=== PATIENT | male | born 1990 | race Caucasian/White ===

== ENCOUNTER 2017-12-27 08:33 | Emergency (ER) | payer OTHER ==
[~2017-12-27] VITALS: Ht 172.7 cm; Wt 72.6 kg
[2017-12-27] MEDS ORDERED: HUMALOG100 UNIT/4 SUBQ (08:42)
[2017-12-27 09:09] VITALS: BP 116/67
--- NOTE | 2017-12-27 09:09 | Emergency Room Report ---
History of Present Illness General Chief Complaint: General Complaint Source: Patient Present Illness HPI Patient is a 27-year-old male who presented after increased nausea and emesis. Patient had prior history of diabetes type 1 and uses an insulin pump. He reports having normal blood sugars. He reported having intermittent episodes morning vomiting. The patient said this morning he had vomited several times and noticed some undigested food and questionable blood. 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 He states he's been clean for several months. Allergies: Coded Allergies: No Known Allergies (Unverified , 12/27/17) Patient History Past Medical History: see triage record Reviewed Nursing Documentation: PMH: Agreed, PSxH: Agreed Nursing Documentation-PMH Past Medical History: No History, Except For Hx Diabetes: Yes - type I Review of Systems All Other Systems: negative except mentioned in HPI Physical Exam Vital Signs Date Time Temp Pulse Resp B/P (MAP) Pulse Ox O2 Delivery O2 Flow Rate FiO2 12/27/17 08:36 98.2 92 18 115/74 95 Room Air 98.2 Sp02 EP Interpretation: reviewed, normal General Appearance: normal inspection, well appearing, no apparent distress, alert, GCS 15 Head: atraumatic ENT: normal ENT inspection, hearing grossly normal, normal voice Neck: normal inspection, full range of motion, supple, no bony tend Respiratory: normal inspection, lungs clear, normal breath sounds, no respiratory distress, no retraction, no wheezing Cardiovascular #1: regular rate, rhythm, no edema Gastrointestinal: normal inspection, normal bowel sounds, non tender, soft, no guarding, no hernia Genitourinary: no CVA tenderness Musculoskeletal: normal inspection, back normal, normal range of motion Neurologic: normal inspection, alert, oriented x3, responsive, computer hardware designer III-XII nml as tested, speech normal Psychiatric: normal inspection, judgement/insight normal, mood/affect normal Skin: normal inspection, normal color, no rash Medical Decision Making Diagnostic Impression: Primary Impression: Nausea, vomiting, and diarrhea Additional Impression: UTI (urinary tract infection) ER Course Patient presented for abdominal pain. Differential diagnoses included ischemic bowel, appendicitis, perforated viscus, abdominal aortic aneurysm, inferior myocardial infarction, viral gastroenteritis. Because of complexity of patient' s case laboratory testing and imaging studies were ordered. Patient was given IV fluids and antiemetics. Patient continued to have a benign exam. Laboratory studies were unremarkable and the patient does not have evident ketoacidosis. He was given prescriptions for antibiotics and medications for nausea and diarrhea. He was advised to return if worsening. Labs Test 12/27/17 09:05 White Blood Count 3.9 K/UL (4.8-10.8) Red Blood Count 5.08 M/UL (4.70-6.10) Hemoglobin 15.6 G/DL (14.2-18.0) Hematocrit 45.3 % (42.0-52.0) Mean Corpuscular Volume 89 FL (80-99) Mean Corpuscular Hemoglobin 30.8 PG (27.0-31.0) Mean Corpuscular Hemoglobin Concent 34.5 G/DL (32.0-36.0) Red Cell Distribution Width 11.2 % (11.6-14.8) Platelet Count 234 K/UL (150-450) Mean Platelet Volume 6.6 FL (6.5-10.1) Neutrophils (%) (Auto) 57.0 % (45.0-75.0) Lymphocytes (%) (Auto) 32.4 % (20.0-45.0) Monocytes (%) (Auto) 8.7 % (1.0-10.0) Eosinophils (%) (Auto) 1.0 % (0.0-3.0) Basophils (%) (Auto) 1.0 % (0.0-2.0) Prothrombin Time 10.7 SEC (9.30-11.50) Prothromb Time International Ratio 1.0 (0.9-1.1) Activated Partial Thromboplast Time 25 SEC (23-33) Urine Color Yellow Urine Appearance Clear Urine pH 6 (4.5-8.0) Urine Specific Echo 1.020 (1.005-1.035) Urine Protein 1+ (NEGATIVE) Urine Glucose (UA) 2+ (NEGATIVE) Urine Ketones Negative (NEGATIVE) Urine Occult Blood Negative (NEGATIVE) Urine Nitrite Negative (NEGATIVE) Urine Bilirubin Negative (NEGATIVE) Urine Urobilinogen Normal MG/DL (0.0-1.0) Urine Leukocyte Esterase 1+ (NEGATIVE) Urine RBC 0-2 /HPF (0 - 0) Urine WBC 2-4 /HPF (0 - 0) Urine Squamous Epithelial Cells Occasional /LPF Urine Bacteria Occasional /HPF (NONE) Urine Mucus Few /LPF (NONE/OCC) Sodium Level 142 MMOL/L (136-145) Potassium Level 4.1 MMOL/L (3.5-5.1) Chloride Level 107 MMOL/L (98-107) Carbon Dioxide Level 33 MMOL/L (21-32) Anion Gap 2 mmol/L (5-15) Blood Urea Nitrogen 11 mg/dL (7-18) Creatinine 1.2 MG/DL (0.55-1.30) Estimat Glomerular Filtration Rate > 60 mL/min (>60) Glucose Level 191 MG/DL (74-106) Calcium Level 9.4 MG/DL (8.5-10.1) Total Bilirubin 0.4 MG/DL (0.2-1.0) Aspartate Amino Transf (AST/SGOT) 18 U/L (15-37) Alanine Aminotransferase (ALT/SGPT) 20 U/L (12-78) Alkaline Phosphatase 68 U/L (46-116) Total Protein 7.8 G/DL (6.4-8.2) Albumin 4.2 G/DL (3.4-5.0) Globulin 3.6 g/dL Albumin/Globulin Ratio 1.2 (1.0-2.7) Lipase 83 U/L (73-393) Last Vital Signs Date Time Temp Pulse Resp B/P (MAP) Pulse Ox O2 Delivery O2 Flow Rate FiO2 12/27/17 08:36 98.2 92 18 115/74 95 Room Air 98.2 Status: improved Disposition: HOME, SELF-CARE Condition: Stable Scripts Cephalexin* (KEFLEX*) 500 Mg Capsule 500 MG ORAL Q6H, #28 CAP 0 Refills Prov: Tacho Pretty 12/27/17 Referrals: NOT CHOSEN IPA/,REFERRING (PCP) Tacho Pretty Dec 27, 2017 09:09
[2017-12-27 09:15] LABS: HEMATOCRIT 45.3 % (42.0-52.0); HEMOGLOBIN 15.6 G/DL (14.2-18.0); LYMPHOCYTES % (AUTO) 32.4 % (20.0-45.0); MEAN CORPUSCULAR VOLUME 89 FL (80-99); MONOCYTES % (AUTO) 8.7 % (1.0-10.0); PLATELET COUNT 234 K/UL (150-450); RED BLOOD COUNT 5.08 M/UL (4.70-6.10); RED CELL DISTRIBUTION WIDTH 11.2 % (11.6-14.8); WHITE BLOOD COUNT 3.9 K/UL (4.8-10.8)
[2017-12-27 09:21] LABS: APPEARANCE,URINE CLEAR; BILIRUBIN, URINE NEGATIVE (NEGATIVE); COLOR,URINE YELLOW; GLUCOSE, URINE (UA) 2+ (NEGATIVE); KETONES,URINE NEGATIVE (NEGATIVE); LEUKOCYTE ESTERASE ,URINE 1+ (NEGATIVE); NITRITE,URINE NEGATIVE (NEGATIVE); PH,URINE 6 (4.5-8.0); PROTEIN,URINE 1+ (NEGATIVE); UROBILINOGEN,URINE NORMAL MG/DL (0.0-1.0)
[2017-12-27 09:22] LABS: ANION GAP 2 mmol/L (5-15); BLOOD UREA NITROGEN 11 mg/dL (7-18); CALCIUM 9.4 MG/DL (8.5-10.1); CARBON DIOXIDE 33 MMOL/L (21-32); CHLORIDE 107 MMOL/L (98-107); CREATININE 1.2 MG/DL (0.55-1.30); POTASSIUM 4.1 MMOL/L (3.5-5.1); SODIUM 142 MMOL/L (136-145)
[2017-12-27 09:26] LABS: ALANINE AMINOTRANSFERASE 20 U/L (12-78); ALBUMIN 4.2 G/DL (3.4-5.0); ALBUMIN/GLOBULIN RATIO 1.2 (1.0-2.7); ALKALINE PHOSPHATASE 68 U/L (46-116); ASPARTATE AMINO TRANSFERASE 18 U/L (15-37); BILIRUBIN,TOTAL 0.4 MG/DL (0.2-1.0)
--- NOTE | 2017-12-27 10:09 | Diagnostic Imaging Report ---
Indication: Chest pain Technique: One view of the chest Comparison: none Findings: Lungs and pleural spaces are clear. Heart size is normal Impression: No acute process
[2017-12-27] MEDS ORDERED: KEFLEX500 MG ORAL (10:41)
[2017-12-27] MEDS ORDERED: PEPCID20 MG ORAL (10:41)
[2017-12-27] MEDS ORDERED: cefTRIAXone 1 GM in NS 55 ML IVPB ONE (10:45)
[2017-12-27 10:58] VITALS: BP 120/65
[2017-12-27 11:08] VITALS: BP 120/65
[2017-12-27] MEDS ORDERED: KAOPECTATE240 M1 PO (11:16)
[2017-12-28] MEDS ORDERED: MIRTAZAPINE45 MG (18:53)
== END 2017-12-27 11:18 | disposition home or self-care (01) ==
LOC: EMR 08:55
DX: N39.0 Urinary tract infection, site not specified (principal); R11.2 Nausea with vomiting, unspecified; R19.7 Diarrhea, unspecified; E10.8 Type 1 diabetes mellitus with unspecified complications; Z79.4 Long term (current) use of insulin; R07.9 Chest pain, unspecified
CPT/HCPCS: 71045; 80053; 81003; 82962; 83690; 85025; 85610; 85730; 96374; 96375; 99284; J0696; J2405; S0028

== ENCOUNTER 2017-12-28 17:19 | Inpatient (IN) | payer OTHER ==
[~2017-12-28] VITALS: Ht 172.7 cm; Wt 72.6 kg
[~2017-12-28 17:19] MED LIST: HUMALOG100 UNIT/4 SUBQ; KAOPECTATE240 M1 PO; KEFLEX500 MG ORAL; PEPCID20 MG ORAL
[2017-12-28] MEDS ORDERED: Acetaminophen 500mg (ES) tab ORAL ONE (17:30)
[2017-12-28 17:31] VITALS: BP 106/65
--- NOTE | 2017-12-28 17:53 | Emergency Room Report ---
History of Present Illness General Chief Complaint: Nausea, Vomiting, and Diarrhea Source: Patient Present Illness HPI 27-year-old male, history of diabetes, p/w nausea vomiting diarrhea for 3 weeks Pt reports n/v, 5-6 episodes of nbnb vomiting, >5 episodes of watery non bloody diarrhea/day Denies fever, chills. was seen here 2 days ago, given keflex for UTI states he hasnt been able to keep anything down today no recent abx use aside from the keflex Allergies: Coded Allergies: No Known Allergies (Unverified , 12/27/17) Patient History Past Medical History: see triage record Past Surgical History: none Pertinent Family History: none Reviewed Nursing Documentation: PMH: Agreed, PSxH: Agreed Nursing Documentation-PMH Past Medical History: No History, Except For Hx Diabetes: Yes - type I Review of Systems All Other Systems: negative except mentioned in HPI Physical Exam Vital Signs Date Time Temp Pulse Resp B/P (MAP) Pulse Ox O2 Delivery O2 Flow Rate FiO2 12/28/17 17:23 99.7 101 16 106/65 98 Room Air 99.7 Sp02 EP Interpretation: reviewed, normal General Appearance: alert, GCS 15, non-toxic, mild distress Head: normocephalic, atraumatic Eyes: bilateral eye normal inspection, bilateral eye PERRL, bilateral eye EOMI ENT: normal ENT inspection, normal pharynx, normal voice, moist mucus membranes Neck: normal inspection, full range of motion, supple Respiratory: normal inspection, lungs clear, normal breath sounds, no respiratory distress, no retraction, no wheezing, speaking full sentences, chest symmetrical Cardiovascular #1: normal inspection, regular rate, rhythm, no edema, normal capillary refill Cardiovascular #2: 2+ radial (R), 2+ radial (L) Gastrointestinal: normal inspection, non tender, soft, non-distended, no guarding Genitourinary: no CVA tenderness Musculoskeletal: normal inspection, back normal, normal range of motion, non- tender Neurologic: normal inspection, alert, oriented x3, responsive, motor strength/ tone normal, sensory intact, normal gait, speech normal Psychiatric: normal inspection, judgement/insight normal, memory normal Skin: normal inspection, normal color, no rash, warm/dry, well hydrated, normal turgor Medical Decision Making Diagnostic Impression: Primary Impression: Nausea, vomiting, and diarrhea Additional Impression: Dehydration ER Course 27-year-old male with 3 weeks of nausea vomiting and diarrhea. Differential Diagnosis: Gastritis, gastroenteritis, DKA, appendicitis, diverticulitis, UTI/pyelo At this time abdomen is soft nontender, not likely to have acute intra- abdominal surgical pathology, will hold CT for now. Plan: Basic labs, ua, ekg IV fluids, Zofran ER course: Patient has remained HD stable during ED stay. Given IV fluids, Tylenol given flagyl empirically as states heh ad Cdiff last year will admit as patient with persistent sx Disposition: Patient will be admitted to med surg. Discussed with hospitalist Dr Jensen Please note that this Emergency Department Report was dictated using [employer] hospice technology software, occasionally this can lead to erroneous entry secondary to interpretation by the dictation equipment EKG Diagnostic Results EP Interpretation: Yes Rate: normal Rhythm: NSR ST Segments: No acute changes ASA given to patient: No Rhythm Strip EP Interpretation: Yes Rate: 90 Rhythm: NSR, no PVCs, no ectopy Laboratory Tests Test 12/28/17 17:45 White Blood Count 5.1 K/UL (4.8-10.8) Red Blood Count 5.03 M/UL (4.70-6.10) Hemoglobin 15.4 G/DL (14.2-18.0) Hematocrit 44.2 % (42.0-52.0) Mean Corpuscular Volume 88 FL (80-99) Mean Corpuscular Hemoglobin 30.7 PG (27.0-31.0) Mean Corpuscular Hemoglobin Concent 34.9 G/DL (32.0-36.0) Red Cell Distribution Width 10.8 % (11.6-14.8) L Platelet Count 272 K/UL (150-450) Mean Platelet Volume 7.1 FL (6.5-10.1) Neutrophils (%) (Auto) 63.4 % (45.0-75.0) Lymphocytes (%) (Auto) 27.7 % (20.0-45.0) Monocytes (%) (Auto) 7.8 % (1.0-10.0) Eosinophils (%) (Auto) 0.2 % (0.0-3.0) Basophils (%) (Auto) 0.9 % (0.0-2.0) Urine Color Pale yellow Urine Appearance Clear Urine pH 8 (4.5-8.0) Urine Specific [place] 1.015 (1.005-1.035) Urine Protein Negative (NEGATIVE) Urine Glucose (UA) Negative (NEGATIVE) Urine Ketones Negative (NEGATIVE) Urine Occult Blood Negative (NEGATIVE) Urine Nitrite Negative (NEGATIVE) Urine Bilirubin Negative (NEGATIVE) Urine Urobilinogen Normal MG/DL (0.0-1.0) Urine Leukocyte Esterase Negative (NEGATIVE) Sodium Level 143 MMOL/L (136-145) Potassium Level 4.1 MMOL/L (3.5-5.1) Chloride Level 106 MMOL/L (98-107) Carbon Dioxide Level 32 MMOL/L (21-32) Anion Gap 5 mmol/L (5-15) Blood Urea Nitrogen 8 mg/dL (7-18) Creatinine 1.2 MG/DL (0.55-1.30) Estimate Glomerular Filtration Rate > 60 mL/min (>60) Glucose Level 212 MG/DL (74-106) H Calcium Level 9.8 MG/DL (8.5-10.1) Magnesium Level 2.0 MG/DL (1.8-2.4) Total Bilirubin 0.6 MG/DL (0.2-1.0) Aspartate Amino Transferase (AST) 14 U/L (15-37) L Alanine Aminotransferase (ALT) 17 U/L (12-78) Alkaline Phosphatase 72 U/L (46-116) Total Protein 7.7 G/DL (6.4-8.2) Albumin 4.2 G/DL (3.4-5.0) Globulin 3.5 g/dL Albumin/Globulin Ratio 1.2 (1.0-2.7) Lipase 94 U/L (73-393) Acetone Level Negative (NEGATIVE) Last Vital Signs Date Time Temp Pulse Resp B/P (MAP) Pulse Ox O2 Delivery O2 Flow Rate FiO2 12/28/17 17:23 99.7 101 16 106/65 98 Room Air 99.7 Disposition: ADMITTED INPATIENT Condition: Prem Gonzalez M.D. Dec 28, 2017 17:53
[2017-12-28 18:09] LABS: BILIRUBIN, URINE NEGATIVE (NEGATIVE); COLOR,URINE PALE YELLOW; GLUCOSE, URINE (UA) NEGATIVE (NEGATIVE); KETONES,URINE NEGATIVE (NEGATIVE); LEUKOCYTE ESTERASE ,URINE NEGATIVE (NEGATIVE); NITRITE,URINE NEGATIVE (NEGATIVE); PH,URINE 8 (4.5-8.0); PROTEIN,URINE NEGATIVE (NEGATIVE); UROBILINOGEN,URINE NORMAL MG/DL (0.0-1.0)
[2017-12-28 18:10] LABS: APPEARANCE,URINE CLEAR; BASOPHILS % (AUTO) 0.9 % (0.0-2.0); EOSINOPHILS % (AUTO) 0.2 % (0.0-3.0); HEMATOCRIT 44.2 % (42.0-52.0); HEMOGLOBIN 15.4 G/DL (14.2-18.0); LYMPHOCYTES % (AUTO) 27.7 % (20.0-45.0); MEAN CORPUSCULAR VOLUME 88 FL (80-99); MONOCYTES % (AUTO) 7.8 % (1.0-10.0); NEUTROPHILS % (AUTO) 63.4 % (45.0-75.0); PLATELET COUNT 272 K/UL (150-450); RED BLOOD COUNT 5.03 M/UL (4.70-6.10); RED CELL DISTRIBUTION WIDTH 10.8 % (11.6-14.8); WHITE BLOOD COUNT 5.1 K/UL (4.8-10.8)
[2017-12-28 18:20] LABS: ANION GAP 5 mmol/L (5-15); BLOOD UREA NITROGEN 8 mg/dL (7-18); CALCIUM 9.8 MG/DL (8.5-10.1); CARBON DIOXIDE 32 MMOL/L (21-32); CHLORIDE 106 MMOL/L (98-107); CREATININE 1.2 MG/DL (0.55-1.30); POTASSIUM 4.1 MMOL/L (3.5-5.1); SODIUM 143 MMOL/L (136-145)
[2017-12-28 18:25] LABS: ALANINE AMINOTRANSFERASE 17 U/L (12-78); ALBUMIN 4.2 G/DL (3.4-5.0); ALBUMIN/GLOBULIN RATIO 1.2 (1.0-2.7); ALKALINE PHOSPHATASE 72 U/L (46-116); ASPARTATE AMINO TRANSFERASE 14 U/L (15-37); BILIRUBIN,TOTAL 0.6 MG/DL (0.2-1.0)
[2017-12-28] MEDS ORDERED: MIRTAZAPINE45 MG (18:53)
[2017-12-28 19:48] VITALS: BP 110/70
[2017-12-28] MEDS ORDERED: Zolpidem 5mg tab ORAL PRN (20:45)
[2017-12-28] MEDS: NovoLOG Insulin Flexpen SUBQ SCH (21:00)
[2017-12-28] MEDS: Ciprofloxacin 500mg tab ORAL SCH (22:23)
[2017-12-28] MEDS: metroNIDAZOLE 250mg tab ORAL SCH (22:23)
[2017-12-29 00:55] VITALS: BP 120/70
[2017-12-29 04:00] VITALS: BP 102/55
[2017-12-29] MEDS: metroNIDAZOLE 250mg tab ORAL SCH ×3 (05:26→21:28)
[2017-12-29 06:02] LABS: BASOPHILS % (AUTO) 1.3 % (0.0-2.0); EOSINOPHILS % (AUTO) 1.2 % (0.0-3.0); HEMATOCRIT 40.9 % (42.0-52.0); HEMOGLOBIN 14.8 G/DL (14.2-18.0); LYMPHOCYTES % (AUTO) 38.5 % (20.0-45.0); MEAN CORPUSCULAR VOLUME 89 FL (80-99); MONOCYTES % (AUTO) 8.8 % (1.0-10.0); NEUTROPHILS % (AUTO) 50.3 % (45.0-75.0); PLATELET COUNT 221 K/UL (150-450); RED BLOOD COUNT 4.61 M/UL (4.70-6.10); WHITE BLOOD COUNT 3.8 K/UL (4.8-10.8)
[2017-12-29 06:26] LABS: ALANINE AMINOTRANSFERASE 15 U/L (12-78); ALBUMIN 3.6 G/DL (3.4-5.0); ALBUMIN/GLOBULIN RATIO 1.1 (1.0-2.7); ALKALINE PHOSPHATASE 62 U/L (46-116); ANION GAP 4 mmol/L (5-15); ASPARTATE AMINO TRANSFERASE 14 U/L (15-37); BILIRUBIN,TOTAL 0.8 MG/DL (0.2-1.0); BLOOD UREA NITROGEN 8 mg/dL (7-18); CALCIUM 8.7 MG/DL (8.5-10.1); CARBON DIOXIDE 29 MMOL/L (21-32); CHLORIDE 107 MMOL/L (98-107); CHOLESTEROL 153 MG/DL (< 200); CREATININE 1.1 MG/DL (0.55-1.30); HDL CHOLESTEROL 40 MG/DL (40-60); SODIUM 140 MMOL/L (136-145); TRIGLYCERIDES 77 MG/DL (30-150)
[2017-12-29] MEDS: NovoLOG Insulin Flexpen SUBQ SCH ×4 (06:30→20:47)
[2017-12-29] MEDS: Ciprofloxacin 500mg tab ORAL SCH ×2 (08:20→20:10)
[2017-12-29 08:57] VITALS: BP 122/59
[2017-12-29] MEDS ORDERED: Tubing IV Secondary IV ONE (10:11)
--- NOTE | 2017-12-29 10:13 | History & Physical ---
History and Physical History & Physicial HP dictated # [id number] TORREY AWAD Dec 29, 2017 10:13
[2017-12-29 11:59] VITALS: BP 116/68
--- NOTE | 2017-12-29 15:46 | History and Physical Report ---
DATE OF ADMISSION: 12/28/2017 CHIEF COMPLAINT: Nausea, vomiting, and diarrhea. HISTORY OF PRESENT ILLNESS: This is a 27-year-old white male with history of type 1 diabetes mellitus. The patient has an insulin pump. He has had diarrhea for three weeks, sometimes watery, sometimes a little bit more solid. The patient apparently was seen in the emergency room two days prior to this admission and given Keflex for UTI, but he still continued to have diarrhea and finally came to the emergency room, and was admitted with diagnosis of acute gastroenteritis. PAST MEDICAL HISTORY: Besides history of diabetes, it is unremarkable. MEDICATIONS: Insulin pump, otherwise reconciled in the EMR. SOCIAL HISTORY: No history of smoking or alcohol abuse. ALLERGIES: No known drug allergies. REVIEW OF SYSTEMS: Noncontributory except above. The patient has not had significant abdominal pain. PHYSICAL EXAMINATION: GENERAL: The patient is a pleasant male, in no acute distress. VITAL SIGNS: Blood pressure 122/59, pulse 79, temperature 98, and respiratory rate 20. HEENT: [place] conjunctivae. Anicteric sclerae. NECK: Supple. LUNGS: Clear to auscultation. HEART: S1 and S2 without murmurs or rubs. ABDOMEN: Soft and nontender. EXTREMITIES: No cyanosis or edema. LABORATORY FINDINGS: The chemistry panel shows serum sodium 140, potassium 4, chloride 107, CO2 29, BUN 8, creatinine 1.1, and blood sugar 224. UA is negative. CBC shows WBC of 3.8, hematocrit 40.9, hemoglobin 14.8, and platelets 221,000. ASSESSMENT: This is a 27-year-old white male with history of type 1 diabetes mellitus admitted with three weeks of diarrhea, diagnosed of acute gastroenteritis and dehydration. His stool for Clostridium difficile was negative. PLAN: The patient will be hydrated with IV normal saline. He was started on empiric p.o. Cipro and Flagyl. We may have to get also GI consultation. Question is if this is just an infectious diarrhea or the patient has inflammatory bowel disease. Vern Jensen M.D. : FELIPA JOB#: [id number] CC:
[2017-12-29] MEDS ORDERED: Morphine Sulfate 2mg/ml Inj IVP PRN (16:15)
[2017-12-29 16:47] VITALS: BP 114/68
[2017-12-29 20:24] VITALS: BP 124/80
[2017-12-30] VITALS (7 sets, daily range): BP systolic 91–129; BP diastolic 60–89
[2017-12-30] MEDS: metroNIDAZOLE 250mg tab ORAL SCH ×3 (05:35→20:36)
[2017-12-30] MEDS: NovoLOG Insulin Flexpen SUBQ SCH ×4 (06:00→20:36)
[2017-12-30] MEDS: Ciprofloxacin 500mg tab ORAL SCH ×2 (08:42→20:36)
[2017-12-30] MEDS ORDERED: Morphine Sulfate 2mg/ml Inj IVP PRN (10:00)
--- NOTE | 2017-12-30 10:03 | General Progress Note ---
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 h/o C Diff in summer of 2016 - treated and now negative N/V Type I DM Recommendations - clears - Reglan - PPI - GI prep - EGD/Colon tomorrow afternoon Thank you Marlo Pittman MD Subjective Allergies: Coded Allergies: No Known Allergies (Unverified , 12/27/17) Objective Last 24 Hour Vital Signs Date Time Temp Pulse Resp B/P (MAP) Pulse Ox O2 Delivery O2 Flow Rate FiO2 12/30/17 09:42 97.8 12/30/17 08:00 97.8 80 19 124/80 97 12/30/17 04:16 98.8 69 20 100/60 100 12/30/17 00:30 98.8 82 18 121/77 98 12/29/17 20:24 99.1 88 20 124/80 98 12/29/17 20:10 98.3 12/29/17 16:47 98.3 77 19 114/68 97 Room Air 12/29/17 11:59 98.2 88 20 116/68 94 Room Air Intake and Output 12/29/17 12/30/17 19:00 07:00 Intake Total 300 ml 2280 ml Balance 300 ml 2280 ml Intake Oral 300 ml 680 ml IV Total 1600 ml # Voids 3 2 Height (Feet): 5 Height (Inches): 8.00 Weight (Pounds): 160 ALETHA PITTMAN Dec 30, 2017 10:03
[2017-12-30] MEDS: Pantoprazole Inj IVP SCH ×2 (10:51→20:36)
[2017-12-30] MEDS ORDERED: Nulytely 4L ORAL ONE (11:15)
[2017-12-30] MEDS: D5NS 1,000 ML IV SCH ×4 (12:20→19:38)
[2017-12-30] MEDS: Morphine Sulfate 4mg/ml Inj IVP PRN ×2 (13:46→18:54)
--- NOTE | 2017-12-30 14:07 | General Progress Note ---
Assessment/Plan Problem List: (1) Nausea, vomiting, and diarrhea ICD Codes: R11.2 - Nausea with vomiting, unspecified; R19.7 - Diarrhea, unspecified SNOMED: 3165411 (2) Acute gastroenteritis ICD Codes: K52.9 - Noninfective gastroenteritis and colitis, unspecified SNOMED: 03937464 Assessment/Plan IVF abxs follow labs await endoscopy Subjective Allergies: Coded Allergies: No Known Allergies (Unverified , 12/27/17) Subjective still with diarrhea Objective Last 24 Hour Vital Signs Date Time Temp Pulse Resp B/P (MAP) Pulse Ox O2 Delivery O2 Flow Rate FiO2 12/30/17 13:46 98.4 12/30/17 12:00 98.4 76 19 119/81 97 12/30/17 09:42 97.8 12/30/17 08:00 97.8 80 19 124/80 97 12/30/17 04:16 98.8 69 20 100/60 100 12/30/17 00:30 98.8 82 18 121/77 98 12/29/17 20:24 99.1 88 20 124/80 98 12/29/17 20:10 98.3 12/29/17 16:47 98.3 77 19 114/68 97 Room Air Intake and Output 12/29/17 12/30/17 19:00 07:00 Intake Total 300 ml 2280 ml Balance 300 ml 2280 ml Intake Oral 300 ml 680 ml IV Total 1600 ml # Voids 3 2 Height (Feet): 5 Height (Inches): 8.00 Weight (Pounds): 160 Cardiovascular: normal rate Respiratory/Chest: lungs clear Edema: no edema noted TORREY Downs Dec 30, 2017 14:07
[2017-12-30] MEDS ORDERED: Morphine Sulfate 4mg/ml Inj ONE (18:46)
--- NOTE | 2017-12-30 19:15 | Consultation ---
DATE OF CONSULTATION: 12/30/2017 GASTROENTEROLOGY CONSULTATION CHIEF COMPLAINT: I was asked to see this patient by Dr. Vern Jensen for evaluation of diarrhea. HISTORY OF PRESENT ILLNESS: The patient is a pleasant 27-year-old white man, who was admitted to the hospital due to persistent vomiting and diarrhea. The patient states that his diarrhea dates back to about a year and he is going to the bathroom four to five bowel movements a day, which are loose. In May last year he started having bouts of vomiting and was evaluated in [place]. He underwent an endoscopy, which was unrevealing, but his stools showed Clostridium difficile colitis for which he was treated. He stated his vomiting resolved, but his diarrhea has persisted at a level of four to five bowel movements a day with urgency. He has no nighttime diarrhea and no family history of inflammatory bowel disease. Over the last three weeks, however, his diarrhea has worsened and once again he is having nausea and vomiting. He came to the emergency room twice where he was eventually admitted. He is now being hydrated. What complicated matters is that he also has type 1 diabetes on insulin, but he keeps a very close control of his sugar levels. He has had no travels and he has no pets and no sick family or contacts. PAST MEDICAL HISTORY: History of type 1 diabetes mellitus, on insulin. FAMILY HISTORY: Negative for inflammatory bowel disease or diarrhea. SOCIAL HISTORY: The patient lives in [facility]; however, he is originally from [facility]. He does not smoke or drink alcohol. He is single. REVIEW OF SYSTEMS: Otherwise negative. PHYSICAL EXAMINATION: GENERAL: Pleasant white man, seen in his room. HEENT: Normocephalic and atraumatic. Sclerae anicteric. Oropharynx clear. NECK: Supple. CHEST: Clear to auscultation. CARDIOVASCULAR: Regular rate. ABDOMEN: Soft with good bowel sounds. There was no organomegaly or tenderness. EXTREMITIES: Revealed no edema. NEUROLOGIC: Nonfocal. LABORATORY DATA: Laboratory data were noted. ASSESSMENT: This patient presents with history of chronic diarrhea, dating back for about a year and now nausea and vomiting, which has resulted in dehydration on admission. He is being hydrated, but even as of this morning he vomited and therefore he will need an inpatient workup. Given the chronicity of the symptoms, an endoscopy and colonoscopy is warranted to rule out inflammatory bowel disease. Other pathogens can be checked for stool, but unlikely can be negative. His Clostridium difficile has already returned as negative. RECOMMENDATIONS: 1. Clear liquid diet. 2. Change IV fluids to continue some D5 to avoid unintentional hypoglycemia. 3. GI tract preparation. 4. Endoscopy and colonoscopy tomorrow with multiple biopsies. Thank you for asking me to participate in the care of this patient. Aman Pittman M.D. DR: DALIA JOB#: [id number] CC: MONSERRAT
[2017-12-31] VITALS (9 sets, daily range): BP systolic 96–122; BP diastolic 36–81
[2017-12-31] MEDS: D5NS 1,000 ML IV SCH ×2 (03:11→18:48)
[2017-12-31] MEDS: metroNIDAZOLE 250mg tab ORAL SCH (06:00)
[2017-12-31] MEDS: NovoLOG Insulin Flexpen SUBQ SCH ×4 (06:19→21:00)
[2017-12-31] MEDS: Ciprofloxacin 500mg tab ORAL SCH ×2 (08:40→21:30)
[2017-12-31] MEDS: Morphine Sulfate 4mg/ml Inj IVP PRN ×3 (08:40→21:31)
[2017-12-31] MEDS: Pantoprazole Inj IVP SCH ×2 (08:40→21:30)
[2017-12-31 09:01] LABS: HEMATOCRIT 41.1 % (42.0-52.0); MEAN CORPUSCULAR VOLUME 87 FL (80-99); PLATELET COUNT 227 K/UL (150-450); RED BLOOD COUNT 4.71 M/UL (4.70-6.10); WHITE BLOOD COUNT 3.2 K/UL (4.8-10.8)
[2017-12-31 09:33] LABS: ANION GAP 5 mmol/L (5-15); BLOOD UREA NITROGEN 4 mg/dL (7-18); CALCIUM 8.7 MG/DL (8.5-10.1); CARBON DIOXIDE 29 MMOL/L (21-32); CHLORIDE 109 MMOL/L (98-107); CREATININE 0.8 MG/DL (0.55-1.30); POTASSIUM 3.5 MMOL/L (3.5-5.1); SODIUM 143 MMOL/L (136-145)
[2017-12-31] MEDS ORDERED: Lidocaine 1% MPF 10mg/ml 5ml ONE (14:00)
[2017-12-31] MEDS ORDERED: Propofol 200mg/20ml IV ONE (14:00)
[2017-12-31] MEDS ORDERED: LR 1000ml 1,000 ML IVLG SCH (14:10)
--- NOTE | 2017-12-31 14:10 | Anethesia Preoperative Eval ---
Anesthesia Pre-op PMH/ROS General Date of Evaluation: Dec 31, 2017 Anesthesiologist: Henry ASA Score: ASA 2 Mallampati Score Class I : Soft palate, uvula, fauces, pillars visible Class II: Soft palate, uvula, fauces visible Class III: Soft palate, base of uvula visible Class IV: Only hard plate visible Mallampati Classification: Class II Surgeon: Zain Diagnosis: Diarrhea Surgical Procedure: EGD and colonoscopy Anesthesia History: none Family History: no anesthesia problems Allergies: Coded Allergies: No Known Allergies (Unverified , 12/27/17) Medications: see eMAR Past Medical History Cardiovascular: Denies: HTN, CAD, [place], valve dz, arrhythmia, other Pulmonary: Denies: asthma, COPD, [place], other Gastrointestinal/Genitourinary: Reports: other - diarrhea, Denies: GERD, CRI, ESRD Neurologic/Psychiatric: Denies: dementia, CVA, depression/anxiety, TIA, other Endocrine: Reports: DM, Denies: hypothyroidism, steroids, other HEENT: Denies: cataract (L), cataract (R), glaucoma, [place] (L), [place] (R), other Hematology/Immune: Denies: anemia, DVT, bleeding disorder, other Musculoskeletal/Integumentary: Denies: OA, RA, DJD, DDD, edema, other PSxH Narrative: Denies Anesthesia Pre-op Phys. Exam Physician Exam Last Vital Signs Date Time Temp Pulse Resp B/P (MAP) Pulse Ox O2 Delivery O2 Flow Rate FiO2 12/31/17 12:00 97.9 69 18 112/81 97 Room Air Constitutional: NAD Cardiovascular: RRR Respiratory: CTA Airway Exam Mallampati Score: Class II MO: full ROM: full Teeth: intact Anesthesia Pre-op A/P Labs Hematology Test 12/31/17 08:15 White Blood Count 3.2 K/UL (4.8-10.8) L Red Blood Count 4.71 M/UL (4.70-6.10) Hemoglobin 15.0 G/DL (14.2-18.0) Hematocrit 41.1 % (42.0-52.0) L Mean Corpuscular Volume 87 FL (80-99) Mean Corpuscular Hemoglobin 31.9 PG (27.0-31.0) H Mean Corpuscular Hemoglobin Concent 36.6 G/DL (32.0-36.0) H Red Cell Distribution Width 11.0 % (11.6-14.8) L Platelet Count 227 K/UL (150-450) Mean Platelet Volume 6.6 FL (6.5-10.1) Neutrophils (%) (Auto) % (45.0-75.0) Lymphocytes (%) (Auto) % (20.0-45.0) Monocytes (%) (Auto) % (1.0-10.0) Eosinophils (%) (Auto) % (0.0-3.0) Basophils (%) (Auto) % (0.0-2.0) Differential Total Cells Counted 100 Neutrophils % (Manual) 59 % (45-75) Lymphocytes % (Manual) 32 % (20-45) Monocytes % (Manual) 7 % (1-10) Eosinophils % (Manual) 0 % (0-3) Basophils % (Manual) 1 % (0-2) Metamyelocytes % 1 % (0-0) H Band Neutrophils 0 % (0-8) Platelet Estimate Adequate Platelet Morphology Normal Red Blood Cell Morphology Normal Erythrocyte Sedimentation Rate 6 MM/HR (0-15) Chemistry Test 12/31/17 08:15 Sodium Level 143 MMOL/L (136-145) Potassium Level 3.5 MMOL/L (3.5-5.1) Chloride Level 109 MMOL/L (98-107) H Carbon Dioxide Level 29 MMOL/L (21-32) Anion Gap 5 mmol/L (5-15) Blood Urea Nitrogen 4 mg/dL (7-18) L Creatinine 0.8 MG/DL (0.55-1.30) Estimat Glomerular Filtration Rate > 60 mL/min (>60) Glucose Level 74 MG/DL (74-106) Calcium Level 8.7 MG/DL (8.5-10.1) Magnesium Level 1.8 MG/DL (1.8-2.4) C-Reactive Protein, Quantitative < 0.4 mg/dL (0.00-0.90) Risk Assessment & Plan Assessment: see chart Plan: ASA II Status Change Before Surgery: No Pre-Antibiotics Drug: N/A KAIT RAY M.D. Dec 31, 2017 14:10
--- NOTE | 2017-12-31 14:11 | Immediate Post-Op Evaluation ---
Immediate Post-Op Evalulation Immediate Post-Op Evalulation Procedure: EGD and colonoscopy Date of Evaluation: Dec 31, 2017 Time of Evaluation: 15:35 IV Fluids: 500 Blood Products: 0 Estimated Blood Loss: 0 Urinary Output: 0 Blood Pressure Systolic: 94 Blood Pressure Diastolic: 53 Pulse Rate: 86 Respiratory Rate: 16 O2 Sat by Pulse Oximetry: 100 Temperature (Fahrenheit): 97 Pain Score (1-10): 0 Nausea: No Vomiting: No Complications 0 Patient Status: awake, reacts, patent, none Hydration Status: adequate Drug: N/A KAIT RAY M.D. Dec 31, 2017 14:11
--- NOTE | 2017-12-31 14:13 | 48 Hour Post Anesthesia Eval ---
Post Anesthesia Evaluation Procedure: EGD and colonoscopy Date of Evaluation: Dec 31, 2017 Airway: patent Nausea: No Vomiting: No Pain Intensity: 0 Hydration Status: adequate Cardiopulmonary Status: at baseline Mental Status/LOC: patient returned to baseline Post-Anesthesia Complications: 0 Follow-up care needed: N/A - further care as per primary team KAIT RAY M.D. Dec 31, 2017 14:13
[2017-12-31] MEDS ORDERED: DiphenhydrAMINE 50mg/ml Inj IVP PRN (14:15)
[2017-12-31] MEDS: metroNIDAZOLE 500mg tab ORAL SCH ×2 (14:18→21:30)
[2017-12-31] MEDS ORDERED: NS 500ML IV ONE (14:20)
--- NOTE | 2017-12-31 14:33 | General Progress Note ---
Assessment/Plan Problem List: (1) Nausea, vomiting, and diarrhea ICD Codes: R11.2 - Nausea with vomiting, unspecified; R19.7 - Diarrhea, unspecified SNOMED: 9173930 (2) Acute gastroenteritis ICD Codes: K52.9 - Noninfective gastroenteritis and colitis, unspecified SNOMED: 75762990 Assessment/Plan IVF abxs follow labs await endoscopy Subjective Allergies: Coded Allergies: No Known Allergies (Unverified , 12/27/17) Subjective still with diarrhea Objective Last 24 Hour Vital Signs Date Time Temp Pulse Resp B/P (MAP) Pulse Ox O2 Delivery O2 Flow Rate FiO2 12/31/17 12:00 97.9 69 18 112/81 97 Room Air 12/31/17 08:00 97.9 71 20 114/70 99 Room Air 12/31/17 04:06 98.1 65 20 96/46 97 Room Air 12/31/17 04:06 97 Room Air 12/30/17 23:49 97 Room Air 12/30/17 23:36 97.5 70 20 91/64 97 Room Air 12/30/17 19:28 97.2 82 20 111/80 98 Room Air 12/30/17 19:28 98 Room Air 12/30/17 19:24 98.2 12/30/17 18:54 98.2 12/30/17 16:00 98.2 69 16 129/89 97 Intake and Output 12/30/17 12/31/17 19:00 07:00 Intake Total 1740 ml 1440 ml Balance 1740 ml 1440 ml Intake Oral 990 ml IV Total 750 ml 1440 ml # Voids 5 2 # Bowel Movements 1 1 Laboratory Tests 12/31/17 08:15: White Blood Count 3.2L, Red Blood Count 4.71, Hemoglobin 15.0, Hematocrit 41.1L , Mean Corpuscular Volume 87, Mean Corpuscular Hemoglobin 31.9H, Mean Corpuscular Hemoglobin Concent 36.6H, Red Cell Distribution Width 11.0L, Platelet Count 227, Mean Platelet Volume 6.6, Neutrophils (%) (Auto) , Lymphocytes (%) (Auto) , Monocytes (%) (Auto) , Eosinophils (%) (Auto) , Basophils (%) (Auto) , Differential Total Cells Counted 100, Neutrophils % ( Manual) 59, Lymphocytes % (Manual) 32, Monocytes % (Manual) 7, Eosinophils % ( Manual) 0, Basophils % (Manual) 1, Metamyelocytes % 1H, Band Neutrophils 0, Platelet Estimate Adequate, Platelet Morphology Normal, Red Blood Cell Morphology Normal, Erythrocyte Sedimentation Rate 6, Sodium Level 143, Potassium Level 3.5, Chloride Level 109H, Carbon Dioxide Level 29, Anion Gap 5, Blood Urea Nitrogen 4L, Creatinine 0.8, Estimat Glomerular Filtration Rate > 60 , Glucose Level 74, Calcium Level 8.7, Magnesium Level 1.8, C-Reactive Protein, Quantitative < 0.4 Height (Feet): 5 Height (Inches): 8.00 Weight (Pounds): 160 Cardiovascular: normal rate Respiratory/Chest: lungs clear Abdomen: soft TORREY AWAD Dec 31, 2017 14:33
--- NOTE | 2017-12-31 14:40 | General Progress Note ---
Assessment/Plan Assessment/Plan Assessment [facility], going back 1 year h/o C Diff in summer of 2016 - treated and now negative N/V Type I DM mild anemia Recommendations - Reglan - PPI - EGD/Colon today POST PROCEDURE ADDENDUM EGD: - GERD with linear erosion - o/w normal EGD - multiple biopsies Colonoscopy - incidental transverse and descending polyps - o/w normal colon, including TI - multiple biopsies Rec - po diet - PPI - d/c planning - outpt f/u Subjective Allergies: Coded Allergies: No Known Allergies (Unverified , 12/27/17) Subjective NPO for EGD/Colon (+) BM with prep d/w patient re procedure Objective Last 24 Hour Vital Signs Date Time Temp Pulse Resp B/P (MAP) Pulse Ox O2 Delivery O2 Flow Rate FiO2 12/31/17 12:00 97.9 69 18 112/81 97 Room Air 12/31/17 08:00 97.9 71 20 114/70 99 Room Air 12/31/17 04:06 98.1 65 20 96/46 97 Room Air 12/31/17 04:06 97 Room Air 12/30/17 23:49 97 Room Air 12/30/17 23:36 97.5 70 20 91/64 97 Room Air 12/30/17 19:28 97.2 82 20 111/80 98 Room Air 12/30/17 19:28 98 Room Air 12/30/17 19:24 98.2 12/30/17 18:54 98.2 12/30/17 16:00 98.2 69 16 129/89 97 Intake and Output 12/30/17 12/31/17 19:00 07:00 Intake Total 1740 ml 1440 ml Balance 1740 ml 1440 ml Intake Oral 990 ml IV Total 750 ml 1440 ml # Voids 5 2 # Bowel Movements 1 1 Laboratory Tests 12/31/17 08:15: White Blood Count 3.2L, Red Blood Count 4.71, Hemoglobin 15.0, Hematocrit 41.1L , Mean Corpuscular Volume 87, Mean Corpuscular Hemoglobin 31.9H, Mean Corpuscular Hemoglobin Concent 36.6H, Red Cell Distribution Width 11.0L, Platelet Count 227, Mean Platelet Volume 6.6, Neutrophils (%) (Auto) , Lymphocytes (%) (Auto) , Monocytes (%) (Auto) , Eosinophils (%) (Auto) , Basophils (%) (Auto) , Differential Total Cells Counted 100, Neutrophils % ( Manual) 59, Lymphocytes % (Manual) 32, Monocytes % (Manual) 7, Eosinophils % ( Manual) 0, Basophils % (Manual) 1, Metamyelocytes % 1H, Band Neutrophils 0, Platelet Estimate Adequate, Platelet Morphology Normal, Red Blood Cell Morphology Normal, Erythrocyte Sedimentation Rate 6, Sodium Level 143, Potassium Level 3.5, Chloride Level 109H, Carbon Dioxide Level 29, Anion Gap 5, Blood Urea Nitrogen 4L, Creatinine 0.8, Estimat Glomerular Filtration Rate > 60 , Glucose Level 74, Calcium Level 8.7, Magnesium Level 1.8, C-Reactive Protein, Quantitative < 0.4 Height (Feet): 5 Height (Inches): 8.00 Weight (Pounds): 160 Objective WDWN NCAT supple CTA RRR soft ND NT no edema nonfocal ALETHA FERNÁNDEZ Dec 31, 2017 14:40
--- NOTE | 2017-12-31 14:40 | Pre-Procedure Note/Attestation ---
Pre-Procedure Note/Attestation Complete Prior to Procedure Planned Procedure: not applicable Procedure Narrative: EGD/Colon Indications for Procedure Pre-Operative Diagnosis: diarrhea Attestation I attest that I discussed the nature of the procedure; its benefits; risks and complications; and alternatives (and the risks and benefits of such alternatives ), prior to the procedure, with the patient (or the patient's legal community service representative). I attest that, if there was a reasonable possibility of needing a blood transfusion, the patient (or the patient's legal community service representative) was given the [facility] standardized written summary, pursuant to the Sharath [place] Blood Safety Act ([place] Health and Safety Code # 1645, as amended). I attest that I re-evaluated the patient just prior to the surgery and that there has been no change in the patient's H&P, except as documented below: ALETHA FERNÁNDEZ Dec 31, 2017 14:40
--- NOTE | 2017-12-31 15:26 | Cardiology Report ---
APPROVED REPORT EKG Measurement Heart [id number] Normal sinus rhythm Normal ECG
--- NOTE | 2017-12-31 15:27 | Endoscopy Procedure Note ---
Endoscopy Procedure Note General Indication for Procedure: diarhea, vomit Procedures Performed: EGD, colonoscopy Operative Findings/Diagnosis: polyps, GERD Specimen: yes Pt Tolerated Procedure Well: Yes Estimated Blood Loss: none Anesthesia Anesthesiologist: see notes Anesthesia: MAC, moderate sedation Medications Medication Given: see anesthesia record Inserted Devices Implant(s) used?: No GI Core Measures 50 yrs or older w/o bx or poly: Not Applicable 10yrs. F/U not recommended: Not Applicable If not recommended, why?: ALETHA FERNÁNDEZ Dec 31, 2017 15:27
--- NOTE | 2017-12-31 15:28 | Brief Operative Note ---
Immediate Post Operative Note Operative Note Chief Complaint: diarrhea Pre-op Diagnosis: diarrhea Procedure: esophagogastroduodenoscopycolon Post-op Diagnosis: EGD: - GERD with linear erosion - o/w normal EGD - multiple biopsies Colonoscopy - incidental transverse and descending polyps - o/w normal colon, including TI - multiple biopsies Rec - po diet - PPI - d/c planning - outpt f/u Surgeon: morteza Anesthesiologist: see report Anesthesia: MAC Specimen: yes Complications: none Condition: stable Fluids: recorded Estimated Blood Loss: none Drains: none Implant(s) used?: No ALETHA FERNÁNDEZ Dec 31, 2017 15:28
[2017-12-31] MEDS ORDERED: D5NS 1000ml IV ONE (16:02)
--- NOTE | 2018-01-01 00:30 | Procedure Note ---
DATE OF PROCEDURE: 12/31/2017 PROCEDURE: Upper gastrointestinal endoscopy with biopsy as well as colonoscopy with biopsy and polypectomy. SURGEON: Aman Pittman M.D. ANESTHESIA: Please see the separate anesthesiologist notes for details. PRE-ENDOSCOPIC DIAGNOSIS: Refractory diarrhea. POST-ENDOSCOPIC DIAGNOSES: 1. Normal upper endoscopy except for reflux related erosions in the lower esophagus. 2. Status post random biopsies of the duodenum, antrum, fundus, and mid esophagus. 3. Normal terminal ileum to 15 cm of examination. 4. No evidence of colitis based on mucosal visualization throughout the colon. 5. Diminutive polyp in the distal transverse colon, status post snare polypectomy. 6. A 3 millimeter polyp in the descending colon, status post biopsy removal. 7. Status post random biopsies of the terminal ileum, right colon, left colon, and rectum. PROCEDURE: The procedure, its risks, indications, alternatives, and possible complications were explained and an informed consent was obtained. The patient was then sedated. A diagnostic upper endoscope was introduced into the oropharynx and advanced to the duodenum. It was gradually withdrawn and then the colonoscope was introduced in the rectum and advanced to the terminal ileum. The colonoscope was then gradually withdrawn and the mucosa was examined carefully. Findings and procedures in the upper and the lower gastrointestinal examination were as listed above. The patient was sent to recovery in good condition. COMPLICATIONS: None. RECOMMENDATIONS: 1. Follow up biopsy results. 2. Resume oral diet. 3. Gentle antidiarrheal treatment as needed. Aman Pittman M.D. DR: DOTTIE JOB#: [id number] CC:
[2018-01-01] MEDS: D5NS 1,000 ML IV SCH ×2 (02:14→10:15)
[2018-01-01 04:00] VITALS: BP 100/64
[2018-01-01] MEDS: metroNIDAZOLE 500mg tab ORAL SCH (06:01)
[2018-01-01] MEDS: NovoLOG Insulin Flexpen SUBQ SCH (06:02)
[2018-01-01 08:00] VITALS: BP 97/56
[2018-01-01] MEDS: Pantoprazole Inj IVP SCH (08:36)
[2018-01-01] MEDS: Morphine Sulfate 4mg/ml Inj IVP PRN (08:36)
[2018-01-01] MEDS: Ciprofloxacin 500mg tab ORAL SCH (08:36)
[2018-01-01] MEDS ORDERED: IMODIUM A-D2 M2 PO (10:38)
--- NOTE | 2018-01-01 10:43 | Consultation ---
Consult Note Assessment/Plan [id number] TORREY AWAD Jan 01, 2018 10:43
[2018-01-01] MEDS ORDERED: Loperamide 2mg cap ORAL PRN (10:45)
[2018-01-01] MEDS ORDERED: D5NS 1000ml IV ONE (10:56)
--- NOTE | 2018-01-01 21:19 | General Progress Note ---
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 h/o C Diff in summer of 2016 - treated and now negative N/V Type I DM mild anemia GERD colon polyps Recommendations - Reglan - PPI - f/u pathology from EGD/Colon Subjective Allergies: Coded Allergies: No Known Allergies (Unverified , 12/27/17) Subjective better today tolerating po wants to go home path pending at time of visit Objective Last 24 Hour Vital Signs Date Time Temp Pulse Resp B/P (MAP) Pulse Ox O2 Delivery O2 Flow Rate FiO2 01/01/18 08:00 97.7 71 21 97/56 95 97.7 01/01/18 04:00 96.6 73 20 100/64 97 Room Air 96.6 12/31/17 22:24 99.5 12/31/17 21:31 99.5 Intake and Output 12/31/17 01/01/18 19:00 07:00 Intake Total 950 ml 125 ml Balance 950 ml 125 ml IV Total 950 ml 125 ml # Voids 1 Height (Feet): 5 Height (Inches): 8.00 Weight (Pounds): 160 Objective WDWN NCAT supple CTA RRR soft ND NT no edema nonfocal ALETHA FERNÁNDEZ Jan 01, 2018 21:19
--- NOTE | 2018-01-02 04:15 | Discharge Summary ---
DATE OF ADMISSION: 12/28/2017 DATE OF DISCHARGE: 01/01/2018 CHIEF COMPLAINT: Diarrhea, nausea, and vomiting. HISTORY OF PRESENT ILLNESS: This is a 27-year-old white male with history of type 1 diabetes mellitus, on insulin pump, who was admitted after three-week history of diarrhea and some watery and some solid stools. The patient had chronic diarrhea in the past, but recently was getting worse. HOSPITAL COURSE: The patient was hydrated with IV fluids. The patient was seen by Dr. Pittman in GI consultation. The patient underwent upper and lower endoscopy. I had a discussion with him. There were some polyps, which were removed in the colon, however, no definitive diagnosis was made. However, the patient had a biopsy done and the results were pending at the time of discharge. The patient continued to have a diarrhea, so we decided to put on Imodium. Initially, he was on Cipro and Flagyl for possibility of infectious diarrhea, however, these were discontinued as the patient was discharged. His hemoglobin A1c was 5.8 on 12/29/2017 and had lipid panel with LDL of 105. DISCHARGE DIAGNOSES: 1. Acute on chronic diarrhea of unknown etiology, possibility of inflammatory bowel disease. 2. Type 1 diabetes mellitus. Vern Jensen M.D. DR: JULIA JOB#: [id number] CC:
--- NOTE | 2018-01-03 18:19 | General Progress Note ---
Assessment/Plan Assessment/Plan Assessment [employer] diarrhea, going back 1 year h/o C Diff in summer of 2016 - treated and now negative N/V Type I DM mild anemia GERD colon polyps Recommendations - Reglan - PPI - can set up for outpatient capsule endoscopy Subjective Allergies: Coded Allergies: No Known Allergies (Unverified , 12/27/17) Subjective seen this am c/o still with abd pain also , still with diarrhea CT done - noted CT negative subsequently, patient left AMA Objective Height (Feet): 5 Height (Inches): 8.00 Weight (Pounds): 160 Objective WDWN NCAT supple CTA RRR soft ND, (+) lower abd TTP no edema nonfocal ALETHA FERNÁNDEZ Jan 03, 2018 18:19
== END 2018-01-01 10:57 | disposition home or self-care (01) | DRG 392 ==
LOC: EMR 17:30 → 3E 18:37 → EDBEDREQ 18:56 → 4W 12-29 18:42
PROC: 0DDF8ZX Extraction of Right Large Intestine, Via Natural or Artificial Opening Endoscopic, Diagnostic (ICD-10-PCS; principal; 2017-12-31 14:45)
PROC: 0DDP8ZX Extraction of Rectum, Via Natural or Artificial Opening Endoscopic, Diagnostic (ICD-10-PCS; principal; 2017-12-31 14:45)
PROC: 0DD68ZX Extraction of Stomach, Via Natural or Artificial Opening Endoscopic, Diagnostic (ICD-10-PCS; principal; 2017-12-31 14:45)
PROC: 0DDG8ZX Extraction of Left Large Intestine, Via Natural or Artificial Opening Endoscopic, Diagnostic (ICD-10-PCS; principal; 2017-12-31 14:45)
PROC: 0DD98ZX Extraction of Duodenum, Via Natural or Artificial Opening Endoscopic, Diagnostic (ICD-10-PCS; principal; 2017-12-31 14:45)
PROC: 0DBL8ZX Excision of Transverse Colon, Via Natural or Artificial Opening Endoscopic, Diagnostic (ICD-10-PCS; principal; 2017-12-31 14:45)
PROC: 0DDB8ZX Extraction of Ileum, Via Natural or Artificial Opening Endoscopic, Diagnostic (ICD-10-PCS; principal; 2017-12-31 14:45)
DX: K58.0 Irritable bowel syndrome with diarrhea (principal); K63.5 Polyp of colon; E10.9 Type 1 diabetes mellitus without complications; E86.0 Dehydration; D64.9 Anemia, unspecified; K21.9 Gastro-esophageal reflux disease without esophagitis; K52.9 Noninfective gastroenteritis and colitis, unspecified; Z79.4 Long term (current) use of insulin
CPT/HCPCS: 36415; 80048; 80053; 80061; 81003; 82009; 82270; 82962; 83036; 83690; 83735; 85007; 85025; 85651; 86140; 87045; 87324; 87427; 93005; 94003; 94150; 99285; J1815; J2405

== ENCOUNTER 2018-01-02 14:44 | Inpatient (IN) | payer OTHER ==
[~2018-01-02] VITALS: Ht 172.7 cm; Wt 72.6 kg
[~2018-01-02 14:44] MED LIST changes: +IMODIUM A-D2 M2 PO; +MIRTAZAPINE45 MG
[2018-01-02] MEDS ORDERED: Ketorolac 30mg Inj IV ONE (16:15)
[2018-01-02 16:32] VITALS: BP 114/69
--- NOTE | 2018-01-02 16:58 | Diagnostic Imaging Report ---
Indication: Chest pain Technique: One view of the chest Comparison: 12/27/2017 Findings: Lungs and pleural spaces are clear. Heart size is normal. No significant interim change Impression: No acute process
[2018-01-02 17:11] LABS: APPEARANCE,URINE SLIGHTLY CLOUDY; BASOPHILS % (AUTO) 0.8 % (0.0-2.0); BILIRUBIN, URINE NEGATIVE (NEGATIVE); EOSINOPHILS % (AUTO) 0.2 % (0.0-3.0); GLUCOSE, URINE (UA) NEGATIVE (NEGATIVE); KETONES,URINE 1+ (NEGATIVE); LEUKOCYTE ESTERASE ,URINE 1+ (NEGATIVE); LYMPHOCYTES % (AUTO) 23.9 % (20.0-45.0); MEAN CORPUSCULAR VOLUME 88 FL (80-99); NITRITE,URINE NEGATIVE (NEGATIVE); PH,URINE 8 (4.5-8.0); PLATELET COUNT 237 K/UL (150-450); PROTEIN,URINE 1+ (NEGATIVE); RED BLOOD COUNT 5.09 M/UL (4.70-6.10); RED CELL DISTRIBUTION WIDTH 11.7 % (11.6-14.8); UROBILINOGEN,URINE NORMAL MG/DL (0.0-1.0); WHITE BLOOD COUNT 5.5 K/UL (4.8-10.8)
[2018-01-02 17:12] LABS: COLOR,URINE YELLOW
[2018-01-02 17:25] LABS: ANION GAP 8 mmol/L (5-15); BLOOD UREA NITROGEN 13 mg/dL (7-18); CALCIUM 9.9 MG/DL (8.5-10.1); CARBON DIOXIDE 31 MMOL/L (21-32); CHLORIDE 104 MMOL/L (98-107); CREATININE 0.9 MG/DL (0.55-1.30); SODIUM 143 MMOL/L (136-145)
[2018-01-02 17:30] LABS: ALANINE AMINOTRANSFERASE 25 U/L (12-78); ALBUMIN 4.5 G/DL (3.4-5.0); ALBUMIN/GLOBULIN RATIO 1.2 (1.0-2.7); ALKALINE PHOSPHATASE 77 U/L (46-116); ASPARTATE AMINO TRANSFERASE 16 U/L (15-37); BILIRUBIN,TOTAL 0.7 MG/DL (0.2-1.0)
[2018-01-02 18:17] VITALS: BP 118/69
[2018-01-02] MEDS ORDERED: Morphine Sulfate 4mg/ml Inj IVP PRN ×3 (18:30→22:01)
[2018-01-02 18:58] VITALS: BP 115/72
[2018-01-02 19:24] VITALS: BP 113/78
[2018-01-02] MEDS: D5 1/2NS w/KCl 20mEq 1,000 ML IV SCH (20:52)
[2018-01-02] MEDS: Loperamide 2mg cap ORAL SCH (20:52)
[2018-01-02] MEDS ORDERED: Zolpidem 5mg tab ORAL PRN (21:00)
--- NOTE | 2018-01-02 22:26 | Emergency Room Report ---
History of Present Illness General Chief Complaint: Abdominal Pain Source: Patient (Ulysses Bey) Present Illness HPI 27 yo male patient presents to ER complaining of abdominal pain, diarrhea and vomiting. Reports watery diarrhea, denies blood. Reports bile in vomiting, denies blood. Patient reports he was discharged from hospital yesterday for similar symptoms. Patient reports his symptoms have not improved. States he spoke on the phone with his physician, Dr. Vern Jensen, who told him to return to [facility] to be admitted to hospital. Reports hx of polyp in colon diagnosed during visit in hospital yesterday. Reports hx of diabetes. Denies fever, chest pain, SOB. (Ulysses Bey) Allergies: Coded Allergies: No Known Allergies (Unverified , 12/27/17) Patient History Past Medical History: see triage record Reviewed Nursing Documentation: PMH: Agreed, PSxH: Agreed (Ulysses Bey) Nursing Documentation-PMH Past Medical History: No History, Except For Hx Cardiac Problems: No Hx Hypertension: No Hx Pacemaker: No Hx Asthma: No Hx COPD: No Hx Diabetes: Yes - Type I DM, Implant insulin pump on R thigh Hx Cancer: No Hx Gastrointestinal Problems: Yes - Had C. Diff Hx Dialysis: No History Of Psychiatric Problem: No Hx Neurological Problems: No Hx Cerebrovascular Accident: No Hx Seizures: No (Ulysses Bey) Review of Systems All Other Systems: negative except mentioned in HPI (Ulysses Bey) Physical Exam Vital Signs Date Time Temp Pulse Resp B/P (MAP) Pulse Ox O2 Delivery O2 Flow Rate FiO2 01/02/18 15:21 98.8 119 16 114/69 96 Room Air 98.8 Sp02 EP Interpretation: reviewed, normal General Appearance: well appearing, no apparent distress, alert, GCS 15, non- toxic Head: normocephalic, atraumatic Eyes: bilateral eye normal inspection, bilateral eye PERRL ENT: hearing grossly normal, normal pharynx, normal voice, uvula midline, moist mucus membranes Neck: full range of motion Respiratory: normal inspection, lungs clear, normal breath sounds, no rhonchi, no accessory muscle use, no wheezing, speaking full sentences Cardiovascular #1: regular rate, rhythm Gastrointestinal: soft, no mass, tenderness - diffuse, generalized in bilateral lower quadrants, other Musculoskeletal: back normal, digits/nails normal, gait/station normal, normal range of motion, no calf tenderness Neurologic: alert, oriented x3, responsive, motor strength/tone normal, normal gait Psychiatric: mood/affect normal Skin: no rash (Ulysses Bey) Medical Decision Making PA Attestation Dr. Padgett is my supervising Physician whom patient management has been discussed with. (Ulysses Bey) Diagnostic Impression: Primary Impression: Abdominal pain Qualified Codes: R10.84 - Generalized abdominal pain ER Course Pt. presents to the ED c/o vomiting Ddx considered but are not limited to gastritis, enteritis, mesenteric adenitis. Low suspicion for Appendicitis. Patient recently seen for similar symptoms, negative Rovsing sign. Vital signs: are WNL, pt. is afebrile Ordered labs, EKG and imaging required for admission to hospital. Ordered pain medication and Zofran. Diffuse lower abdominal tenderness. Patient does not require emergent imaging in ER. ER COURSE: Called and left a message for Dr. Jensen confirming patient had spoken with him and he would like the patient admitted to [facility]. CXR negative for acute disease EKG no ST elevation, no arrhythmia UA negative for nitrites. Labs unremarkable. Patient resting comfortably in bed, reports mild symptom improvement following administration of medications. Dr. Padgett spoke with Dr. Jensen on the phone and confirmed patient should be admitted to hospital for abdominal pain. Patient was admitted to care of Dr. Vern Jensen. Labs Test 01/02/18 16:35 White Blood Count 5.5 K/UL (4.8-10.8) Red Blood Count 5.09 M/UL (4.70-6.10) Hemoglobin 16.0 G/DL (14.2-18.0) Hematocrit 45.0 % (42.0-52.0) Mean Corpuscular Volume 88 FL (80-99) Mean Corpuscular Hemoglobin 31.4 PG (27.0-31.0) Mean Corpuscular Hemoglobin Concent 35.5 G/DL (32.0-36.0) Red Cell Distribution Width 11.7 % (11.6-14.8) Platelet Count 237 K/UL (150-450) Mean Platelet Volume 6.6 FL (6.5-10.1) Neutrophils (%) (Auto) 68.0 % (45.0-75.0) Lymphocytes (%) (Auto) 23.9 % (20.0-45.0) Monocytes (%) (Auto) 7.0 % (1.0-10.0) Eosinophils (%) (Auto) 0.2 % (0.0-3.0) Basophils (%) (Auto) 0.8 % (0.0-2.0) Urine Color Yellow Urine Appearance Slightly cloudy Urine pH 8 (4.5-8.0) Urine Specific [place] 1.015 (1.005-1.035) Urine Protein 1+ (NEGATIVE) Urine Glucose (UA) Negative (NEGATIVE) Urine Ketones 1+ (NEGATIVE) Urine Occult Blood Negative (NEGATIVE) Urine Nitrite Negative (NEGATIVE) Urine Bilirubin Negative (NEGATIVE) Urine Urobilinogen Normal MG/DL (0.0-1.0) Urine Leukocyte Esterase 1+ (NEGATIVE) Urine RBC 0-2 /HPF (0 - 0) Urine WBC 0-2 /HPF (0 - 0) Urine Squamous Epithelial Cells Occasional /LPF Urine Amorphous Sediment Moderate /LPF (NONE) Urine Bacteria Few /HPF (NONE) Urine Mucus Few /LPF (NONE/OCC) Sodium Level 143 MMOL/L (136-145) Potassium Level 4.0 MMOL/L (3.5-5.1) Chloride Level 104 MMOL/L (98-107) Carbon Dioxide Level 31 MMOL/L (21-32) Anion Gap 8 mmol/L (5-15) Blood Urea Nitrogen 13 mg/dL (7-18) Creatinine 0.9 MG/DL (0.55-1.30) Estimat Glomerular Filtration Rate > 60 mL/min (>60) Glucose Level 170 MG/DL (74-106) Calcium Level 9.9 MG/DL (8.5-10.1) Total Bilirubin 0.7 MG/DL (0.2-1.0) Aspartate Amino Transf (AST/SGOT) 16 U/L (15-37) Alanine Aminotransferase (ALT/SGPT) 25 U/L (12-78) Alkaline Phosphatase 77 U/L (46-116) Total Protein 8.4 G/DL (6.4-8.2) Albumin 4.5 G/DL (3.4-5.0) Globulin 3.9 g/dL Albumin/Globulin Ratio 1.2 (1.0-2.7) Lipase 96 U/L (73-393) (Ulysses Bey.Willie) ER Course Please see above H and P. I examined this patient and agree with the assessment and treatment plan. Discussed with Dr. Jensen. (Sherif Padgett M.D.) Chest X-Ray Diagnostic Results Chest X-Ray Diagnostic Results : Chest X-Ray Ordered: Yes Indication: Other EP Interpretation: Yes PA Xray: Interpretation reviewed, by supervising MD, and agrees with findings. Interpretation: no consolidation, no effusion, no pneumothorax, no acute cardiopulmonary disease Impression: No acute disease PA Scribe Text Horace HERRERA-Riccardo (Ulysses Bey.Willie) Chest X-Ray Diagnostic Results : EP Interpretation: Yes PA Xray: Interpretation reviewed, by supervising MD, and agrees with findings. Electronically Signed by: Sherif Beckman MD (Sherif Padgett M.D.) Last Vital Signs Date Time Temp Pulse Resp B/P (MAP) Pulse Ox O2 Delivery O2 Flow Rate FiO2 01/02/18 19:24 97.9 101 20 113/78 100 Room Air 97.9 (Ulysses Bey.Willie) Status: improved (Sherif Padgett M.D.) Disposition: ADMITTED INPATIENT Condition: Improved Referrals: NOT CHOSEN SIVAKUMAR/,REFERRING (PCP) Ulysses Bey Jan 02, 2018 22:26 Sherif Padgett M.D. Jan 03, 2018 23:10
--- NOTE | 2018-01-02 23:41 | General Progress Note ---
Assessment/Plan Assessment/Plan GI CONSULT Assessment [facility] diarrhea, going back 1 year Now with nausea, vomiting, diarrhea and abdominal paon h/o C Diff in summer of 2017 - treated and now negative Type I DM mild anemia GERD colon polyps Recommendations - Reglan - PPI - f/u final pathology from EGD/Colon (prelim negative) - check CT abd/pelvis in am Subjective Allergies: Coded Allergies: No Known Allergies (Unverified , 12/27/17) Objective Last 24 Hour Vital Signs Date Time Temp Pulse Resp B/P (MAP) Pulse Ox O2 Delivery O2 Flow Rate FiO2 01/02/18 19:24 97.9 101 20 113/78 100 Room Air 97.9 01/02/18 18:58 98.4 80 16 115/72 97 Room Air 98.4 01/02/18 18:52 98.8 01/02/18 18:22 98.8 01/02/18 18:19 98.8 67 16 118/69 97 Room Air 98.8 01/02/18 18:17 98.8 67 16 118/69 97 Room Air 98.8 01/02/18 17:24 98.8 01/02/18 16:55 98.8 01/02/18 16:32 98.8 69 16 114/69 96 Room Air 98.8 01/02/18 15:21 98.8 119 16 114/69 96 Room Air 98.8 Intake and Output 01/01/18 01/02/18 19:00 07:00 # Bowel Movements 1 Laboratory Tests 01/02/18 16:35: White Blood Count 5.5, Red Blood Count 5.09, Hemoglobin 16.0, Hematocrit 45.0, Mean Corpuscular Volume 88, Mean Corpuscular Hemoglobin 31.4H, Mean Corpuscular Hemoglobin Concent 35.5, Red Cell Distribution Width 11.7, Platelet Count 237, Mean Platelet Volume 6.6, Neutrophils (%) (Auto) 68.0, Lymphocytes (%) (Auto) 23.9, Monocytes (%) (Auto) 7.0, Eosinophils (%) (Auto) 0.2, Basophils (%) (Auto ) 0.8, Urine Color Yellow, Urine Appearance Slightly cloudy, Urine pH 8, Urine Specific [place] 1.015, Urine Protein 1+H, Urine Glucose (UA) Negative, Urine Ketones 1+H, Urine Occult Blood Negative, Urine Nitrite Negative, Urine Bilirubin Negative, Urine Urobilinogen Normal, Urine Leukocyte Esterase 1+H, Urine RBC 0-2H, Urine WBC 0-2, Urine Squamous Epithelial Cells Occasional, Urine Amorphous Sediment ModerateH, Urine Bacteria Few, Urine Mucus FewH, Sodium Level 143, Potassium Level 4.0, Chloride Level 104, Carbon Dioxide Level 31, Anion Gap 8, Blood Urea Nitrogen 13, Creatinine 0.9, Estimat Glomerular Filtration Rate > 60, Glucose Level 170H, Calcium Level 9.9, Total Bilirubin 0.7 , Aspartate Amino Transf (AST/SGOT) 16, Alanine Aminotransferase (ALT/SGPT) 25, Alkaline Phosphatase 77, Total Protein 8.4H, Albumin 4.5, Globulin 3.9, Albumin/ Globulin Ratio 1.2, Lipase 96 Height (Feet): 5 Height (Inches): 8.00 Weight (Pounds): 160 ALETHA FERNÁNDEZ Jan 02, 2018 23:41
[2018-01-03 00:04] VITALS: BP 81/45
[2018-01-03 00:30] VITALS: BP 97/66
[2018-01-03] MEDS: Loperamide 2mg cap ORAL SCH ×4 (01:06→13:03)
--- NOTE | 2018-01-03 03:30 | Consultation ---
DATE OF CONSULTATION: 01/02/2018 GASTROENTEROLOGY CONSULTATION CONSULTING PHYSICIAN: Aman Pittman M.D. REFERRING PHYSICIAN: Vern Jensen M.D. CHIEF COMPLAINT: I was asked to see this patient by Dr. Vern Jensen for evaluation of abdominal complaints. HISTORY OF PRESENT ILLNESS: The patient is a pleasant 27-year-old white man, who was recently discharged from the hospital, who returns for symptoms of nausea, vomiting, and diarrhea. The patient states that he had loose stools for about a year and he normally goes to the bathroom four to five bowel movements a day, which are loose. In May 2017, he was diagnosed with Clostridium difficile. At that time, he underwent endoscopy. His vomiting resolved but his diarrhea persisted. On recent admission to [place], he underwent both endoscopy and colonoscopy. The endoscopy appeared normal visually except for some reflux erosions in the lower esophagus. The colonoscopy showed normal terminal ileum and there was no evidence of colitis based on visual examination. Incidental diminutive polyps were removed and random biopsies were obtained. The official final report of the biopsies is not available at this time, but preliminary evaluation was provided by the pathologist, who stated that there are no significant findings in any of the biopsy results. The patient now complains of persistent nausea, vomiting, and diarrhea and is seeking further evaluation. PAST MEDICAL HISTORY: History of type 1 diabetes mellitus, he is on insulin. FAMILY HISTORY: Negative for inflammatory bowel disease. SOCIAL HISTORY: The patient lives in [facility], however, he is originally from [place]. He does not smoke or drink. REVIEW OF SYSTEMS: Otherwise negative. PHYSICAL EXAMINATION: GENERAL: A well-developed, well-nourished white man seen in his room. HEENT: Normocephalic and atraumatic. Sclerae anicteric. Oropharynx clear. NECK: Supple. CHEST: Clear to auscultation. CARDIOVASCULAR: Revealed regular rate. ABDOMEN: Soft. Good bowel sounds. There is some lower abdominal tenderness to palpation which was mild and diffusely distributed to the lower abdomen. EXTREMITIES: Revealed no edema. LABORATORY DATA: Noted. ASSESSMENT: This patient presents with abdominal pain in the lower abdomen of unclear etiology. Recently, he has recurrent nausea, vomiting, and diarrhea and needs further evaluation to determine the cause of his symptoms. Since he has already had an endoscopy and colonoscopy, so the CT scan of the abdomen and pelvis should be done to rule out any pathological changes in the small bowel that would explain the symptoms. If the above is negative, then a capsule endoscopy should be done to evaluate the small bowel further. Indications, risks, and alternatives of the above evaluations were explained and informed consent was obtained. RECOMMENDATIONS: 1. CT scan of the abdomen and pelvis tomorrow. 2. Follow symptoms. 3. Further recommendations to follow. Thank you for asking me to participate in the care of this patient. Aman Pittman M.D. DR: DOTTIE JOB#: [id number] CC:
[2018-01-03 03:32] VITALS: BP 96/53
[2018-01-03] MEDS: D5 1/2NS w/KCl 20mEq 1,000 ML IV SCH ×2 (05:21→08:42)
[2018-01-03 06:43] LABS: BASOPHILS % (AUTO) 1.2 % (0.0-2.0); EOSINOPHILS % (AUTO) 1.8 % (0.0-3.0); HEMATOCRIT 39.6 % (42.0-52.0); HEMOGLOBIN 14.1 G/DL (14.2-18.0); LYMPHOCYTES % (AUTO) 37.7 % (20.0-45.0); MEAN CORPUSCULAR VOLUME 89 FL (80-99); MONOCYTES % (AUTO) 11.7 % (1.0-10.0); NEUTROPHILS % (AUTO) 47.6 % (45.0-75.0); PLATELET COUNT 204 K/UL (150-450); RED BLOOD COUNT 4.43 M/UL (4.70-6.10); RED CELL DISTRIBUTION WIDTH 11.7 % (11.6-14.8); WHITE BLOOD COUNT 3.7 K/UL (4.8-10.8)
[2018-01-03 07:12] LABS: ALANINE AMINOTRANSFERASE 22 U/L (12-78); ALBUMIN 3.5 G/DL (3.4-5.0); ALBUMIN/GLOBULIN RATIO 1.1 (1.0-2.7); ALKALINE PHOSPHATASE 70 U/L (46-116); ANION GAP 8 mmol/L (5-15); ASPARTATE AMINO TRANSFERASE 11 U/L (15-37); BILIRUBIN,TOTAL 0.3 MG/DL (0.2-1.0); BLOOD UREA NITROGEN 12 mg/dL (7-18); CALCIUM 8.7 MG/DL (8.5-10.1); CARBON DIOXIDE 27 MMOL/L (21-32); CHLORIDE 104 MMOL/L (98-107); POTASSIUM 4.1 MMOL/L (3.5-5.1); SODIUM 139 MMOL/L (136-145)
[2018-01-03 08:02] VITALS: BP 99/68
--- NOTE | 2018-01-03 12:06 | Diagnostic Imaging Report ---
Clinical Indication: Abdominal pain Technique: Patient given oral contrast. IV administration nonionic contrast. Venous phase spiral acquisition obtained through the abdomen and pelvis. Multiplanar reconstructions were generated. Total dose length product 677.9 mGycm. CTDIvol(s) 13.21 mGy. Dose reduction achieved using automated exposure control Comparison: none Findings: Evaluation of the GI tract is limited, as patient was only able to tolerate a limited amount of oral contrast. No evidence of diverticulosis or diverticulitis. The appendix is normal. No small bowel distention or small bowel wall thickening. No free or loculated intraperitoneal air or fluid is evident. The distal esophagus, stomach, duodenum are unremarkable. The liver, gallbladder, bile ducts, pancreas, spleen, adrenals are all unremarkable. The right kidney demonstrates a 15 mm fluid attenuation cyst. Both kidneys demonstrate subcentimeter low-attenuation lesions which are too small to characterize. No renal or ureteral calculi, hydronephrosis, or hydroureter. No retroperitoneal or mesenteric mass or adenopathy. No pelvic mass or adenopathy. The bones are unremarkable. The included lung bases are clear. Impression: No acute or significant abnormality demonstrated Incidental finding of right renal cyst. There are also bilateral subcentimeter low-attenuation renal lesions which are too small to characterize. No further follow-up necessary The CT scanner at [facility] is accredited by the [employer] and the scans are performed using protocols designed to limit radiation exposure to as low as reasonably achievable to attain images of sufficient resolution adequate for diagnostic evaluation.
[2018-01-03 12:19] VITALS: BP 117/75
--- NOTE | 2018-01-03 12:29 | History & Physical ---
History and Physical History & Physicial HP dictated # [id number] TORREY AWAD Jan 03, 2018 12:29
--- NOTE | 2018-01-03 18:00 | History and Physical Report ---
DATE OF ADMISSION: 01/02/2018 CHIEF COMPLAINT: Abdominal pain, diarrhea and vomiting. HISTORY OF PRESENT ILLNESS: This is a 27-year-old white male, who was just recently discharged from the hospital for diarrhea, nausea, and vomiting. During that admission, he had upper as well as lower endoscopy by Dr. Pittman. At that time he was discharged, the biopsy results were not back, but there was no evidence of colitis based on visual examination. There were some polyps, which were removed and the biopsy results were not available. The patient insisted to go home even when he was still little bit symptomatic, but then he called me at home that he was still not feeling well and he was supposed to see me in the office the following day. He missed that appointment and then later at night, he showed up in the emergency room. He was complaining of abdominal pain and vomiting. PAST MEDICAL HISTORY: History of diabetes mellitus. MEDICATIONS: Reviewed in EMR. ALLERGIES: No known drug allergies. SOCIAL HISTORY: No history of smoking or alcohol abuse. REVIEW OF SYSTEMS: As above. PHYSICAL EXAMINATION: GENERAL: The patient is a pleasant male, in no acute distress. VITAL SIGNS: Blood pressure is 117/75, pulse 87, temperature 97.3 degrees, respiratory rate is 20. HEENT: [place] conjunctivae. Anicteric sclerae. NECK: Supple. LUNGS: Clear to auscultation. HEART: S1 and S2 without murmurs or rubs. ABDOMEN: Soft. There is some tenderness in the right lower quadrant. Note that the patient got some pain medications prior to exam. EXTREMITIES: No cyanosis or edema. LABORATORY FINDINGS: The CBC shows WBC of 3700, hematocrit is 39.6, hemoglobin is 14.1, and platelets 204,000. Chemistry panel shows a serum sodium of 139, potassium 4.1, chloride 104, BUN is 12, creatinine 1, and blood sugar is 382. Albumin is 3.5. ASSESSMENT: This is a 27-year-old white male, who is re-admitted for diagnoses of diarrhea and vomiting, which appears to be acute gastroenteritis. He was treated with p.o. antibiotics last time, and it did not really improve. PLAN: The patient was seen by Dr. Pittman. CT scans were ordered and also he mentioned that we may have to do a capsule endoscopy if everything else is negative. Meanwhile, it appears that the biopsies were also negative, although we do not have any final results. The patient meanwhile is on liquid diet and he is going to be on antiemetics as well as antidiarrheal medications and pain medications. Vern Jensen M.D. DR: JULIA JOB#: [id number] CC:
--- NOTE | 2018-01-05 15:18 | Cardiology Report ---
APPROVED REPORT EKG Measurement Heart [id number] DE [id number] Normal sinus rhythm Normal ECG
--- NOTE | 2018-01-06 08:33 | Discharge Summary ---
Discharge Summary Hospital Course Date of Admission Jan 02, 2018 at 17:10 Date of Discharge Jan 03, 2018 at 15:08 Admitting Diagnosis ABDOMINAL PAIN HPI Ulysses Soto is a 27 year old male who was admitted on Jan 02, 2018 at 17: 10 for Abdominal Pain Hospital Course dc summary #[id number] Discharge Discharge Disposition Patient signed AMA Discharge Diagnoses: Discharge Instructions Discharge Instructions Special Instructions I have been assigned to complete a D/C Summary on this account. I was not involved in the patient management Nicole Rowe NP (Vanchtein) Jan 06, 2018 08:33
--- NOTE | 2018-01-06 21:30 | Discharge Summary 2 SIG ---
DATE OF ADMISSION: 01/02/2018 DATE OF SIGNINGS AGAINST MEDICAL ADVISE: : 01/03/2018 REASON FOR ADMISSION: 27 years old male with history of diabetes mellitus type 1, managed with insulin pump, presented to the emergency department with abdominal pain, nausea, vomiting, and watery diarrhea. He denied blood in stool and blood in the vomitus. The patient was recently hospitalized and had upper endoscopy and colonoscopy. When he was discharged, biopsy was not back, but there was no evidence of colitis based on visual exam. The patient at that time insisted on going home since he was improving, however, at home, he did not feel well and decided to come back to the emergency room for evaluation. In the emergency room, the patient was tachycardic, otherwise vital signs were stable. Laboratories were unremarkable. Lipase -96. LFTs within normal limits. Glucose -170. Chest x-ray negative. The patient was admitted with diagnosis of abdominal pain with diarrhea and vomiting. HOSPITAL COURSE: The patient was admitted. The patient was started on the IV fluids and liquid diet. GI consult was requested. The patient had a history of C. diff colitis in 06/2017, which was treated and repeated test on previous recent admission was negative. As mentioned above, esophagogastroduodenoscopy and colonoscopy were done on previous admission. Pathology back at this time. Pathology showed mild chronic gastritis of the stomach. Biopsy was negative for Helicobacter infection, and otherwise benign. Colon polyp biopsy revealed tubular adenoma, no other acute findings. GI seen and evaluated the patient. The patient was started on antiemetic with Reglan and PPI. CT of the abdomen and pelvis was ordered. The plan was initially to get a CT of the abdomen and pelvis to rule out any pathological changes in the small bowels that would explain the symptoms and if it will be negative, capsule endoscopy was planned to evaluate small bowel further.The patient initially agreed with the plan. CT of the abdomen and pelvis revealed no evidence of acute pathology. The patient clinically improved. Diarrhea and nausea stopped. He decided to sign against medical advice. The risks and consequences of signing against medical advice were discussed with the patient. The patient verbalized understanding. Nevertheless, he signed the AMA form and left. FINAL DIAGNOSES: 1. Probable acute gastroenteritis. 2. Abdominal pain with diarrhea and vomiting, secondary to probable acute gastroenteritis. 3. History of Clostridium difficile colitis (treated in 06/2017 and testing after negative). 4. Diabetes mellitus type 1. 5. Gastroesophageal reflux disease. 6. Colon polyp, status post biopsy. Vern Jensen M.D. I have been assigned to dictate discharge summary on this account and I was not involved in the patient's management. Nicole DahlGlen Cove HospitalLizbet N.PElio DR: MAURA JOB#: [id number] CC: MONSERRAT
== END 2018-01-03 15:08 | disposition left against medical advice (07) | DRG 392 ==
LOC: EMR 16:35 → 4W 17:10 → EDBEDREQ 17:47
DX: K52.9 Noninfective gastroenteritis and colitis, unspecified (principal); E10.9 Type 1 diabetes mellitus without complications; R10.9 Unspecified abdominal pain; K21.9 Gastro-esophageal reflux disease without esophagitis; Z79.4 Long term (current) use of insulin; K29.70 Gastritis, unspecified, without bleeding; Z86.010 Personal history of colon polyps
CPT/HCPCS: 36415; 71045; 74177; 80053; 81003; 82962; 83690; 83735; 85025; 93005; 99285; J2405